=== PATIENT | male | born 1930 | race Caucasian/White ===

== ENCOUNTER 2016-03-19 00:02 | Inpatient (IN) | payer MEDICARE ==
[2016-04-17] MEDS ORDERED: BICALUTAMIDE 50 MG TABLET PO SCH
== END 2016-04-16 00:01 | disposition still patient (30) | DRG 57 ==
LOC: PPLC 00:02
PROVIDERS: ADMIT Family Medicine; ATTEND Family Medicine
DX: G20 Parkinson's disease (principal); R53.83 Other fatigue; T83.511A Infection and inflammatory reaction due to indwelling urethral catheter, initial encounter; N39.0 Urinary tract infection, site not specified; C61 Malignant neoplasm of prostate; Z79.899 Other long term (current) drug therapy

== ENCOUNTER 2016-04-16 00:02 | Inpatient (IN) | payer MEDICARE | END 2016-04-17 18:04 | disposition still patient (30) | DRG 57 | LOC: PPLC 00:02 | PROVIDERS: ADMIT Family Medicine; ATTEND Family Medicine | DX: G20 Parkinson's disease (principal); R53.83 Other fatigue; T83.511A Infection and inflammatory reaction due to indwelling urethral catheter, initial encounter; N39.0 Urinary tract infection, site not specified; C61 Malignant neoplasm of prostate; Z79.899 Other long term (current) drug therapy ==